=== PATIENT | male | born 1965 | race Caucasian/White ===

== ENCOUNTER 2021-04-10 19:26 | Emergency (ER) | payer SELFPAY ==
[~2021-04-10] VITALS: Ht 167.6 cm; Wt 65.8 kg
[2021-04-10] MEDS: BACITRACIN ZINC OINT UDPKT TOP ONE (20:00)
[2021-04-10] MEDS ORDERED: TETANUS, DIPHTHERIA, PERTUSSIS VAC/PF 0.5ML (>10YR OLD) IM ONE (20:00)
[2021-04-10] MEDS: OLANZAPINE 10 MG/VIAL IM ONE (20:02)
[2021-04-10] MEDS: SODIUM CHLORIDE 0.9% 1,000 ML IV ONE (20:27)
[2021-04-10 20:33] LABS: BASOPHILS % 0.2 % (0.0-2.0); HEMATOCRIT. 44.8 % (42.0-52.0); HEMOGLOBIN. 15.2 g/dL (14.0-18.0); LYMPHOCYTES % 45.7 % (20.0-50.0); MEAN CORPUSCULAR HEMOGLOBIN 29.4 pg (28.0-32.0); MEAN CORPUSCULAR VOLUME 86.6 fL (80.0-94.0); MEAN PLATELET VOLUME 7.1 fl (7.4-10.4); MONOCYTES % 5.4 % (2.0-8.0); NEUTROPHILS % 45.7 % (40.0-76.0); PLATELET 298 x1000/uL (130-400); RED BLOOD CELL COUNT 5.18 mill/uL (4.7-6.1); RED CELL DISTRIBUTION WIDTH 13.5 % (11.6-14.6)
[2021-04-10 20:42] LABS: CHLORIDE 107 mEq/L (98-107)
[2021-04-10 20:46] LABS: ETHANOL BLOOD 246 mg/dL
[2021-04-10] MEDS ORDERED: LIDOCAINE HCL/EPINEPHRINE 1%-EPI 1:100,000 20 ML VIAL INFIL ONE (22:30)
[2021-04-11 00:18] VITALS: BP 156/68
== END 2021-04-11 00:19 | disposition home or self-care (01) ==
LOC: ER 19:26
DX: S01.01XA Laceration without foreign body of scalp, initial encounter (principal); T51.91XA Toxic effect of unspecified alcohol, accidental (unintentional), initial encounter; W18.30XA Fall on same level, unspecified, initial encounter; Y92.9 Unspecified place or not applicable; Y93.89 Activity, other specified; Y92.89 Other specified places as the place of occurrence of the external cause; Y99.8 Other external cause status; Y90.8 Blood alcohol level of 240 mg/100 ml or more
CPT/HCPCS: 12002; 36415; 80053; 80320; 85025; 90715; 96360; 96361; 96372; 99283; J3490; J7030; Z7610; G0480

== ENCOUNTER 2021-04-16 09:30 | Emergency (ER) | payer OTHER ==
[~2021-04-16] VITALS: Ht 167.6 cm; Wt 75.0 kg
[2021-04-16 09:33] VITALS: BP 158/98
== END 2021-04-16 10:29 | disposition home or self-care (01) ==
LOC: ER 09:30
DX: Z48.02 Encounter for removal of sutures (principal)
CPT/HCPCS: 99281